=== PATIENT | female | born 1950 | race Hispanic/Latino ===

== ENCOUNTER → 2022-05-13 | Outpatient (CLI) | payer MEDICARE, MEDICAID ==
[~2022-05-13] MED LIST: IOHEXOL 350 MG/ML 100ML INFUS..BTL IV ONE; IOHEXOL-350 50ML VIAL IV ONE
== END | disposition home or self-care (01) ==
LOC: RAH 11:42
PROVIDERS: ATTEND Internal Medicine Cardiovascular Disease
DX: I73.9 Peripheral vascular disease, unspecified (principal)
CPT/HCPCS: 75635; Q9967 ×2

== ENCOUNTER → 2024-07-18 | Outpatient (CLI) | payer MEDICARE ==
--- NOTE | 2024-07-18 13:49 | HMCSR ---
APPROVED REPORT Right Lower Extremity Venous Study for DVT. Indications z09, s/p cv RGSV 07-15-24 Vein Imaging CFV (R): Normal flow, augmentation and compression. No evidence of DVT. 8.1mm 6567ms of reflux. SFJ (R): Normal flow, augmentation and compression. No evidence of DVT. FEM (R): Normal flow, augmentation and compression. No evidence of DVT. POP (R): Normal flow, augmentation and compression. No evidence of DVT. DFV (R): Normal flow, augmentation and compression. No evidence of DVT. PTV (R): Normal flow, augmentation and compression. No evidence of DVT. Peroneals (R): Normal flow, augmentation and compression. No evidence of DVT. Technologist Impression Deep veins of the RLE appear patent and compressible without thrombus. RGSV closed from proximal thigh to proximal calf. Deep venous reflux noted in the RCFV. Conclusion Successful ablation to right greater saphenous vein Deep venous reflux noted right common femoral vein Clinical correlation recommended Conclusion Successful ablation to right greater saphenous vein Deep venous reflux noted right common femoral vein Clinical correlation recommended
== END | disposition home or self-care (01) ==
LOC: SHCH 08:34
PROVIDERS: ATTEND Internal Medicine Cardiovascular Disease
DX: Z09 Encounter for follow-up examination after completed treatment for conditions other than malignant neoplasm (principal); I87.8 Other specified disorders of veins; I87.2 Venous insufficiency (chronic) (peripheral)
CPT/HCPCS: 93971

== ENCOUNTER → 2024-08-08 | Outpatient (CLI) | payer MEDICARE | END | disposition home or self-care (01) | LOC: SHCH 09:25 | PROVIDERS: ATTEND Internal Medicine Cardiovascular Disease | DX: Z09 Encounter for follow-up examination after completed treatment for conditions other than malignant neoplasm (principal); I87.2 Venous insufficiency (chronic) (peripheral) | CPT/HCPCS: 93971 ==